=== PATIENT | male | born 1955 | race Caucasian/White ===

== ENCOUNTER 2021-07-09 17:31 | Emergency (ER) | payer OTHER, MEDICARE ==
[~2021-07-09] VITALS: Ht 177.8 cm; Wt 81.8 kg
[2021-07-09 17:33] VITALS: BP 178/96
[2021-07-09] MEDS ORDERED: LIDOcaine 2% 10ml TOPICAL JELLY (Urojet) TP ONE (18:10)
--- NOTE | 2021-07-09 19:06 | NUR ---
PTS CALLED TO UPDATE THAT PT IS DC READY. JUAN DANIEL WADE TALKING WITH HER. SHE WILL BE HERE IN ABOUT 20 MIN. PT NOW TRANSPORT WAIT.
== END 2021-07-09 19:39 | disposition home or self-care (01) ==
LOC: ER 17:32
DX: R33.9 Retention of urine, unspecified (principal); N40.0 Benign prostatic hyperplasia without lower urinary tract symptoms; Z86.73 Personal history of transient ischemic attack (TIA), and cerebral infarction without residual deficits
CPT/HCPCS: 51702; 99284